=== PATIENT | female | born 1995 | race Caucasian/White ===

== ENCOUNTER 2017-07-23 11:24 | Emergency (ER) | payer OTHER, MEDICAID, SELFPAY ==
[2017-07-23] MEDS: LIDOCAINE W/EPINEPHRINE 1% 20ML VIAL SC (12:15)
== END 2017-07-23 15:28 | disposition home or self-care (01) ==
LOC: M ED 11:24
DX: Z04.6 Encounter for general psychiatric examination, requested by authority (principal); F60.9 Personality disorder, unspecified; S91.012A Laceration without foreign body, left ankle, initial encounter; X78.9XXA Intentional self-harm by unspecified sharp object, initial encounter; F17.200 Nicotine dependence, unspecified, uncomplicated; F99 Mental disorder, not otherwise specified
CPT/HCPCS: 12004

== ENCOUNTER 2017-07-30 21:40 | Emergency (ER) | payer OTHER ==
[2017-07-31] MEDS ORDERED: POLYSPORIN TOPICAL OINTMENT 15GM As Ordered (00:32)
[2017-07-31] MEDS: BACITRACIN OINT 30GM TOP (00:45)
== END 2017-07-31 00:47 | disposition home or self-care (01) ==
LOC: M ED 07-31 00:47
DX: S91.012A Laceration without foreign body, left ankle, initial encounter (principal); X78.9XXA Intentional self-harm by unspecified sharp object, initial encounter; Y92.89 Other specified places as the place of occurrence of the external cause; F60.3 Borderline personality disorder
CPT/HCPCS: 99283

== ENCOUNTER 2017-08-09 19:41 | Emergency (ER) | payer OTHER | END 2017-08-09 21:06 | disposition home or self-care (01) | LOC: M ED 19:41 | DX: Z48.02 Encounter for removal of sutures (principal); Z76.0 Encounter for issue of repeat prescription; F60.3 Borderline personality disorder; Z72.0 Tobacco use; Z79.899 Other long term (current) drug therapy | CPT/HCPCS: 99283 ==

== ENCOUNTER 2017-09-19 17:47 | Inpatient (IN) | payer MEDICAID, OTHER ==
[2017-09-19 19:52] LABS: HEMATOCRIT 38.1 % (36.0-47.0); HEMOGLOBIN 12.8 g/dl (12.0-15.5); MEAN CORPUSCULAR HEMOGLOBIN 28.9 pg (27.0-33.0); MEAN CORPUSCULAR HGB CONC 33.6 g/dl (32.0-36.5); PLATELET COUNT, AUTOMATED 321 10^3/uL (150-450); RED BLOOD COUNT 4.43 10^6/uL (4.00-5.40); RED CELL DISTRIBUTION WIDTH 13.5 % (11.5-14.5); WHITE BLOOD COUNT 10.8 10^3/uL (4.0-10.0)
[2017-09-19 19:58] LABS: AMPHETAMINES LEVEL URINE NEGATIVE (NEGATIVE); BARBITURATES URINE NEGATIVE (NEGATIVE); BENZODIAZEPINES URINE POSITIVE (NEGATIVE); CANNABINOIDS URINE POSITIVE (NEGATIVE); COCAINE METABOLITE URINE NEGATIVE (NEGATIVE); METHADONE URINE NEGATIVE (NEGATIVE); OPIATES URINE NEGATIVE (NEGATIVE); PHENCYCLIDINE URINE NEGATIVE (NEGATIVE)
[2017-09-19 20:11] LABS: CONTROL LINE HCG INT CTR LINE PRESENT; HCG, SERUM QUALITATIVE NEGATIVE (NEGATIVE)
[2017-09-19 20:26] LABS: ALBUMIN 4.6 GM/DL (3.2-5.2); ALBUMIN/GLOBULIN RATIO 1.18 (1.00-1.93); ALKALINE PHOSPHATASE 86 U/L (45-117); ALT/SGPT 25 U/L (12-78); ANION GAP 10 MEQ/L (8-16); AST/SGOT 37 U/L (7-37); BILIRUBIN,DIRECT 0.2 MG/DL (0.0-0.2); BILIRUBIN,TOTAL 0.7 MG/DL (0.2-1.0); BLOOD UREA NITROGEN 12 MG/DL (7-18); CALCIUM LEVEL 9.2 MG/DL (8.5-10.1); CARBON DIOXIDE LEVEL 24 MEQ/L (21-32); CHLORIDE LEVEL 107 MEQ/L (98-107); CREATININE FOR GFR 0.96 MG/DL (0.55-1.30); ETHYL ALCOHOL (ETHANOL) < 0.003 % (0.000-0.010); GLOMERULAR FILTRATION RATE > 60.0 (>60); GLUCOSE, FASTING 91 MG/DL (70-100); POTASSIUM SERUM 3.8 MEQ/L (3.5-5.1); SALICYLATE LEVEL 2.3 MG/DL (5.0-30.0); SODIUM LEVEL 141 MEQ/L (136-145); TOTAL PROTEIN 8.5 GM/DL (6.4-8.2)
[2017-09-19 20:28] LABS: ACETAMINOPHEN LEVEL < 2.0 UG/ML (10.0-30.0)
[2017-09-19] MEDS: diphenhydrAMINE INJ 50MG/ML VIAL (J1200) IM (20:46)
[2017-09-19] MEDS: LORazepam 2 MG/ML VIAL (J2060) IM (20:46)
[2017-09-19] MEDS: HALOPERIDOL 5 MG/ML VIAL (J1630) IM (20:46)
[2017-09-19] MEDS ORDERED: OLANZapine ORAL DISINTEGRATING TAB 5MG PO (21:00)
[2017-09-19] MEDS: DIVALPROEX 250 MG TAB PO (21:00)
[2017-09-19] MEDS ORDERED: MOM 30ML SUSPENSION UDC PO (21:00)
[2017-09-19] MEDS: PALIPERIDONE 6 MG ER TAB (INVEGA) PO (21:00)
[2017-09-19] MEDS ORDERED: MAALOX 30 ML SUSP *UDC PO (21:00)
[2017-09-19] MEDS ORDERED: ACETAMINOPHEN TAB 650MG DOSE (2X325MG) PO (21:00)
[2017-09-19] MEDS ORDERED: traZODone 50 MG TAB PO (21:00)
[2017-09-20] MEDS: DIVALPROEX 250 MG TAB PO ×3 (08:50→21:00)
[2017-09-20] MEDS ORDERED: HALOPERIDOL 5 MG/ML VIAL (J1630) As Ordered (14:19)
[2017-09-20] MEDS: HALOPERIDOL 5 MG/ML VIAL (J1630) IM ×2 (14:30→14:33)
[2017-09-20] MEDS: LORazepam 2 MG/ML VIAL (J2060) IM ×3 (14:30→17:17)
[2017-09-20] MEDS: diphenhydrAMINE INJ 50MG/ML VIAL (J1200) IM ×2 (14:31→14:32)
[2017-09-20] MEDS: HALOPERIDOL 10 MG TAB PO (14:33)
[2017-09-20] MEDS ORDERED: LORazepam 1 MG TAB PO (15:30)
[2017-09-20] MEDS: chlorproMAZINE INJ 50MG/2ML AMP (J3230) IM (15:45)
[2017-09-20] MEDS: HALOPERIDOL 5 MG TAB PO ×2 (15:59→21:00)
[2017-09-20] MEDS: OLANZapine INTRAMUSCULAR 10 MG VIAL (S0166) IM (17:17)
[2017-09-21] MEDS: DIVALPROEX 250 MG TAB PO ×3 (08:52→21:00)
[2017-09-21] MEDS: HALOPERIDOL 5 MG TAB PO ×4 (08:52→21:00)
[2017-09-22 07:43] LABS: IRON (FE) 11 UG/DL (50-170); PERCENT SATURATION 3.7 % (13.2-45.0); TOTAL IRON BINDING CAPACITY 294 UG/DL (250-450)
[2017-09-22] MEDS: HALOPERIDOL 5 MG TAB PO ×4 (09:00→21:00)
[2017-09-22] MEDS: FERROUS SULFATE 325MG TAB PO ×2 (09:00→21:00)
[2017-09-22] MEDS: DIVALPROEX 250 MG TAB PO ×3 (09:00→21:00)
[2017-09-23] MEDS: FERROUS SULFATE 325MG TAB PO ×2 (09:00→20:50)
[2017-09-23] MEDS: DIVALPROEX 250 MG TAB PO ×3 (09:00→20:47)
[2017-09-23] MEDS: HALOPERIDOL 5 MG TAB PO ×5 (09:00→20:49)
[2017-09-23] MEDS: LORazepam 2 MG/ML VIAL (J2060) IM (13:33)
[2017-09-23] MEDS: HALOPERIDOL 5 MG/ML VIAL (J1630) IM (13:33)
[2017-09-23] MEDS: LORazepam 0.5 MG TAB PO ×2 (16:21→20:49)
[2017-09-23] MEDS: hydrOXYzine 50 MG TAB PO ×2 (20:50→20:52)
[2017-09-24] MEDS: HALOPERIDOL 2 MG TAB PO ×4 (09:00→20:54)
[2017-09-24] MEDS: HALOPERIDOL 5 MG TAB PO ×2 (09:00→20:55)
[2017-09-24] MEDS: LORazepam 0.5 MG TAB PO ×4 (09:00→20:54)
[2017-09-24] MEDS: FERROUS SULFATE 325MG TAB PO ×2 (09:00→20:54)
[2017-09-24] MEDS: DIVALPROEX 250 MG TAB PO (09:00)
[2017-09-24] MEDS: lamoTRIgine 25 MG TAB PO (09:30)
[2017-09-24] MEDS: hydrOXYzine 50 MG TAB PO ×2 (09:33→15:43)
[2017-09-24] MEDS ORDERED: LORazepam 2 MG/ML VIAL (J2060) IM (18:24)
[2017-09-24] MEDS ORDERED: HALOPERIDOL 5 MG/ML VIAL (J1630) IM (18:24)
[2017-09-24] MEDS: LORazepam 2 MG/ML VIAL (J2060) IM (20:47)
[2017-09-24] MEDS: HALOPERIDOL 5 MG/ML VIAL (J1630) IM (20:47)
[2017-09-25] MEDS: HALOPERIDOL 2 MG TAB PO (08:26)
[2017-09-25] MEDS: lamoTRIgine 25 MG TAB PO (08:27)
[2017-09-25] MEDS: hydrOXYzine 50 MG TAB PO (08:28)
[2017-09-25] MEDS: FERROUS SULFATE 325MG TAB PO ×2 (08:29→20:29)
[2017-09-25] MEDS: LORazepam 0.5 MG TAB PO ×4 (09:00→20:30)
[2017-09-25] MEDS: CEPHALEXIN 500 MG CAP PO ×3 (10:17→20:30)
[2017-09-25] MEDS: HALOPERIDOL 5 MG TAB PO ×3 (13:06→20:29)
[2017-09-25] MEDS: hydrOXYzine 25 MG TAB PO ×2 (16:04→20:29)
[2017-09-26] MEDS: CEPHALEXIN 500 MG CAP PO ×3 (06:10→22:00)
[2017-09-26] MEDS: HALOPERIDOL 5 MG TAB PO ×4 (09:00→21:00)
[2017-09-26] MEDS: LORazepam 0.5 MG TAB PO ×4 (09:00→21:00)
[2017-09-26] MEDS: hydrOXYzine 25 MG TAB PO ×3 (09:25→21:00)
[2017-09-26] MEDS: FERROUS SULFATE 325MG TAB PO ×2 (09:25→21:00)
[2017-09-26] MEDS: lamoTRIgine 25 MG TAB PO (09:26)
[2017-09-26] MEDS: OLANZapine ORAL DISINTEGRATING TAB 5MG PO (14:06)
[2017-09-26] MEDS: LORazepam 2 MG TAB PO (14:06)
[2017-09-27] MEDS: CEPHALEXIN 500 MG CAP PO ×4 (06:00→21:33)
[2017-09-27] MEDS: lamoTRIgine 25 MG TAB PO (06:39)
[2017-09-27] MEDS: hydrOXYzine 25 MG TAB PO ×3 (06:39→20:08)
[2017-09-27] MEDS: FERROUS SULFATE 325MG TAB PO ×2 (08:27→20:08)
[2017-09-27] MEDS: LORazepam 0.5 MG TAB PO ×4 (08:28→20:07)
[2017-09-27] MEDS: HALOPERIDOL 5 MG TAB PO ×4 (08:28→20:07)
[2017-09-28] MEDS: CEPHALEXIN 500 MG CAP PO ×3 (06:16→21:05)
[2017-09-28] MEDS: HALOPERIDOL 5 MG TAB PO ×4 (08:04→21:00)
[2017-09-28] MEDS: LORazepam 0.5 MG TAB PO ×4 (08:04→21:00)
[2017-09-28] MEDS: lamoTRIgine 25 MG TAB PO (08:06)
[2017-09-28] MEDS: hydrOXYzine 25 MG TAB PO ×3 (08:06→21:07)
[2017-09-28] MEDS: FERROUS SULFATE 325MG TAB PO ×2 (08:06→21:05)
[2017-09-28 10:32] LABS: KETONE, URINE AUTO RFX NEGATIVE (NEGATIVE); LEUKOCYTE ESTERASE UR AUTO RFX NEGATIVE (NEGATIVE); NITRITE, URINE AUTO RFX NEGATIVE (NEGATIVE); RBC, URINE AUTO RFX 0 /HPF (0-3); SPECIFIC GRAVITY UR AUTO RFX 1.011 (1.002-1.035); SQUAM EPITHELIAL CELL UR AURFX 1 /HPF (0-6); WBC, URINE AUTO RFX 1 /HPF (0-3)
[2017-09-29] MEDS: CEPHALEXIN 500 MG CAP PO ×3 (05:59→21:37)
[2017-09-29] MEDS: FERROUS SULFATE 325MG TAB PO ×2 (08:02→21:37)
[2017-09-29] MEDS: hydrOXYzine 25 MG TAB PO ×3 (08:02→23:15)
[2017-09-29] MEDS: lamoTRIgine 25 MG TAB PO (08:02)
[2017-09-29] MEDS: LORazepam 0.5 MG TAB PO ×4 (08:03→21:00)
[2017-09-29] MEDS: HALOPERIDOL 5 MG TAB PO ×4 (08:03→21:00)
[2017-09-29] MEDS: LORazepam 2 MG TAB PO (16:21)
[2017-09-30] MEDS: CEPHALEXIN 500 MG CAP PO ×2 (05:59→13:35)
[2017-09-30] MEDS: LORazepam 0.5 MG TAB PO ×3 (09:00→15:18)
[2017-09-30] MEDS: HALOPERIDOL 5 MG TAB PO ×3 (09:00→15:18)
[2017-09-30] MEDS: hydrOXYzine 25 MG TAB PO ×2 (09:03→15:18)
[2017-09-30] MEDS: FERROUS SULFATE 325MG TAB PO (09:03)
[2017-09-30] MEDS: lamoTRIgine 25 MG TAB PO (09:03)
[2017-09-30] MEDS: LORazepam 2 MG TAB PO (11:23)
== END 2017-09-30 14:00 | disposition home or self-care (01) | DRG 885 ==
LOC: M ED 17:47 → M ED INP 20:52 → M PSY 21:55
DX: F31.2 Bipolar disorder, current episode manic severe with psychotic features (principal); L03.317 Cellulitis of buttock; Z79.899 Other long term (current) drug therapy; Z91.19 Patient's noncompliance with other medical treatment and regimen; D64.9 Anemia, unspecified

== ENCOUNTER → 2017-10-24 | Outpatient (REF) | payer MEDICAID ==
[2017-10-24 12:49] LABS: BASO % 0.6 % (0.0-1.0); EOS # 0.1 10^3/uL (0.0-0.50); EOS % 1.8 % (0.0-3.0); HEMATOCRIT 37.3 % (36.0-47.0); HEMOGLOBIN 12.4 g/dl (12.0-15.5); IMMATURE GRANULOCYTE % 0.6 % (0-3.0); LYMPH # 2.5 10^3/uL (1.5-6.5); MEAN CORPUSCULAR HEMOGLOBIN 29.1 pg (27.0-33.0); MEAN CORPUSCULAR HGB CONC 33.2 g/dl (32.0-36.5); MEAN CORPUSCULAR VOLUME 87.6 fl (80.0-96.0); MONO # 0.8 10^3/uL (0.0-0.8); MONO % 12.1 % (0.0-5.0); NEUTROPHILS # 3.1 10^3/uL (1.8-7.7); NEUTROPHILS % 46.9 % (36.0-66.0); PLATELET COUNT, AUTOMATED 294 10^3/uL (150-450); RED BLOOD COUNT 4.26 10^6/uL (4.00-5.40); RED CELL DISTRIBUTION WIDTH 13.6 % (11.5-14.5); WHITE BLOOD COUNT 6.5 10^3/uL (4.0-10.0)
[2017-10-24 13:36] LABS: IRON (FE) 28 UG/DL (50-170)
[2017-10-24 13:36] LABS: FERRITIN 25 NG/ML (8-252)
[2017-10-30 11:07] LABS: SUMMARY SEE SEPARATE REPORT
== END ==
LOC: M LAB REF 12:29
DX: D64.9 Anemia, unspecified (principal)

== ENCOUNTER 2018-07-19 14:06 | Emergency (ER) | payer OTHER ==
[~2018-07-19] VITALS: Ht 154.9 cm; Wt 68.8 kg
[~2018-07-19 14:06] MED LIST: CEPH500C PO; FERR1TAB8 PO; FERR325T3 PO; HYDR-3363 PO; HYDRO50TAB PO; LAMI25TA PO; LAMO25TA4 PO; PATIENT COMMENT
[2018-07-19] MEDS ORDERED: METOCLOPRAMIDE INJ 10MG/2ML VIAL (J2765) IV ONE (14:45)
[2018-07-19] MEDS ORDERED: NS 1,000 ML IV ONE (14:45)
[2018-07-19 15:04] LABS: BASO % 0.6 % (0.0-1.0); EOS % 0.5 % (0.0-3.0); HEMATOCRIT 36.7 % (36.0-47.0); HEMOGLOBIN 12.3 g/dl (12.0-15.5); LYMPH # 2.2 10^3/uL (1.5-6.5); LYMPH % 32.8 % (24.0-44.0); MEAN CORPUSCULAR HEMOGLOBIN 28.9 pg (27.0-33.0); MEAN CORPUSCULAR HGB CONC 33.5 g/dl (32.0-36.5); MEAN CORPUSCULAR VOLUME 86.2 fl (80.0-96.0); MONO # 0.9 10^3/uL (0.0-0.8); MONO % 13.8 % (0.0-5.0); NEUTROPHILS # 3.4 10^3/uL (1.8-7.7); NEUTROPHILS % 51.7 % (36.0-66.0); PLATELET COUNT, AUTOMATED 323 10^3/uL (150-450); RED BLOOD COUNT 4.26 10^6/uL (4.00-5.40); WHITE BLOOD COUNT 6.6 10^3/uL (4.0-10.0)
[2018-07-19 15:46] LABS: ALBUMIN 4.3 GM/DL (3.2-5.2); ALT/SGPT 16 U/L (12-78); BILIRUBIN,TOTAL 0.7 MG/DL (0.2-1.0); BLOOD UREA NITROGEN 9 MG/DL (7-18); CALCIUM LEVEL 8.7 MG/DL (8.5-10.1); CARBON DIOXIDE LEVEL 22 MEQ/L (21-32); CHLORIDE LEVEL 107 MEQ/L (98-107); CREATININE FOR GFR 0.79 MG/DL (0.55-1.30); GLOMERULAR FILTRATION RATE > 60.0 (>60); GLUCOSE, FASTING 76 MG/DL (70-100); HCG, SERUM QUANTITATIVE 2279 MIU/ML; POTASSIUM SERUM 3.9 MEQ/L (3.5-5.1); SODIUM LEVEL 138 MEQ/L (136-145); TOTAL PROTEIN 7.8 GM/DL (6.4-8.2)
[2018-07-19] MEDS ORDERED: REGL10TA6 PO (15:55)
[2018-07-19 16:01] VITALS: BP 110/71
--- NOTE | 2018-07-20 06:59 | REP ---
HISTORY: Pelvic pain. Transvesical and transvaginal imaging was obtained. The uterus measures 8.8 x 4 x 6.6 cm. 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 Only MRI can make the definitive distinction from an imaging standpoint. That is well known in the literature. On the right side, there is an anechoic structure with increased echoes surrounding it consistent with a decidual reaction. This has a mean gestational sac measurement consistent with a 5 week 1 day gestational age. No pole or yolk sac is identified. Doppler shows no cardiac activity. Adjacent to the suspected gestational sac there is a small 6 mm sized area of decreased echoes representing either a small subchorionic hemorrhage or chorionic nonfusion during this early stage of . The right ovary measures 4 x 2.4 x 2.6 cm and is within normal limits with RI of 0.6. There is a dominant follicle versus corpus luteum measuring 2 cm. The left ovary measures 2.6 x 1.5 x 2.8 cm and is within normal limits with an RI of 0.56. There is no free fluid in the cul-de-sac. IMPRESSION: Suspected early OB ultrasound as described above with findings involving the uterus as described above. This all needs to be followed closely with clinical correlation. Electronically Signed by Johnathan Guzman DO 07/20/2018 09:11 A
== END 2018-07-19 16:32 | disposition home or self-care (01) ==
LOC: M ED 14:06
DX: Z32.01 Encounter for pregnancy test, result positive (principal); O36.8911 Maternal care for other specified fetal problems, first trimester, fetus 1; Z87.891 Personal history of nicotine dependence; Z3A.01 Less than 8 weeks gestation of pregnancy
CPT/HCPCS: 76801; 76817; 80053; 81001; 84702; 85025; 86850; 86900; 86901; 93976; 96374; 99284; J2765

== ENCOUNTER → 2018-08-06 | Outpatient (CLI) | payer MEDICAID ==
[~2018-08-06] MED LIST changes: +REGL10TA6 PO
== END ==
LOC: M OUTALCOH 08:47
PROVIDERS: ATTEND Psychiatry & Neurology Psychiatry
DX: Z03.89 Encounter for observation for other suspected diseases and conditions ruled out (principal)

== ENCOUNTER → 2018-08-07 | Outpatient (REF) | payer OTHER, MEDICAID ==
[~2018-08-07] MED LIST changes: +ONDA4TAB5
[2018-08-08 11:04] LABS: HEPATITIS C VIRUS ABY INDEX 0.2 INDEX (<0.8); HIV 1&2 SCREEN CENTAUR NEGATIVE (NEGATIVE); RUBELLA IgG QUALITATIVE IMMUNE (IMMUNE)
== END ==
LOC: M LAB REF 12:49
PROVIDERS: ATTEND Obstetrics & Gynecology
DX: Z34.81 Encounter for supervision of other normal pregnancy, first trimester (principal); Z36.89 Encounter for other specified antenatal screening

== ENCOUNTER 2018-08-27 14:15 | Outpatient (RCR) | payer OTHER, MEDICAID ==
[~2018-08-27 14:15] MED LIST changes: -ONDA4TAB5
== END 2018-08-31 ==
LOC: M OUTALCOH 14:15
PROVIDERS: ATTEND Psychiatry & Neurology Psychiatry
DX: Z03.89 Encounter for observation for other suspected diseases and conditions ruled out (principal)

== ENCOUNTER 2018-09-14 10:33 | Emergency (ER) | payer MEDICAID, OTHER ==
[~2018-09-14] VITALS: Ht 154.9 cm; Wt 66.4 kg
[2018-09-14] MEDS ORDERED: ONDA4TAB5 (10:39)
--- NOTE | 2018-09-14 12:36 | REP ---
Emergency first trimester obstetric sonography: History: Left lower quadrant pain. 13 weeks gestation. Findings: Transabdominal scanning demonstrates a living intrauterine gestation in a free-floating lie. Embryonic pole measures 69 mm in crown-rump length. This corresponds with a gestational age estimate of 13 weeks 1 day. heart rate is recorded at 155 beats per minute. No subchorionic hemorrhage is seen. No gross anomaly is seen. No extrauterine abnormality is observed. The gestation is in the right horn of a septate or subseptate appearing uterus. Impression: Viable single intrauterine gestation at 13 weeks 1 day by crown-rump length. ROSEMARIE by sonography March 21, 2019. Subseptate uterus. Gestation right side of the uterus. Electronically Signed by Andreas Aggarwal MD 09/14/2018 02:36 P
[2018-09-14 12:58] VITALS: BP 116/70
== END 2018-09-14 13:22 | disposition home or self-care (01) ==
LOC: M ED 10:33
DX: O26.891 Other specified pregnancy related conditions, first trimester (principal); R10.32 Left lower quadrant pain; O34.511 Maternal care for incarceration of gravid uterus, first trimester; Q51.28 Other and unspecified doubling of uterus; Z3A.13 13 weeks gestation of pregnancy